=== PATIENT | female | born 1945 | race Hispanic/Latino ===

== ENCOUNTER → 2017-09-02 | Outpatient (CLI) | payer OTHER | END | disposition home or self-care (01) | LOC: OIH 13:52 | PROVIDERS: ATTEND Family Medicine | DX: S99.922A Unspecified injury of left foot, initial encounter (principal); W19.XXXA Unspecified fall, initial encounter; Y93.89 Activity, other specified; Y92.89 Other specified places as the place of occurrence of the external cause; Y99.8 Other external cause status | CPT/HCPCS: 73630 ==

== ENCOUNTER → 2018-04-23 | Outpatient (CLI) | payer OTHER | END | disposition home or self-care (01) | LOC: OIH 11:11 | PROVIDERS: ATTEND Family Medicine | DX: M41.86 Other forms of scoliosis, lumbar region (principal); M25.562 Pain in left knee; I10 Essential (primary) hypertension; E78.5 Hyperlipidemia, unspecified | CPT/HCPCS: 72100; 73562 ==

== ENCOUNTER → 2019-02-08 | Outpatient (CLI) | payer OTHER | END | disposition home or self-care (01) | LOC: OIH 14:46 | PROVIDERS: ATTEND Family Medicine | DX: S33.140A Subluxation of L4/L5 lumbar vertebra, initial encounter (principal); M47.816 Spondylosis without myelopathy or radiculopathy, lumbar region; X58.XXXA Exposure to other specified factors, initial encounter; Y93.89 Activity, other specified; Y92.89 Other specified places as the place of occurrence of the external cause; Y99.8 Other external cause status | CPT/HCPCS: 72100 ==

== ENCOUNTER → 2019-12-30 | Outpatient (CLI) | payer OTHER | END | disposition home or self-care (01) | LOC: OIH 08:32 | PROVIDERS: ATTEND Family Medicine | DX: M25.511 Pain in right shoulder (principal) | CPT/HCPCS: 73030 ==

== ENCOUNTER 2024-09-16 18:56 | Emergency (ER) | payer OTHER ==
[~2024-09-16] VITALS: Ht 154.9 cm; Wt 88.5 kg
--- NOTE | 2024-09-16 20:01 | ERN ---
General Chief Complaint: Other Problems Stated Complaint: FISHING HOOK STUCK ON LEFT ARM Time Seen by MD: 19:03 Time Seen by Midlevel: 19:03 Source: patient History of Present Illness Initial Comments The patient is a 78-year-old female presenting to the emergency department with a fish hook to her left forearm. Denies any pain. Patient states she was wa lking around her lawn when she accidentally lodged the fishhook on her left forearm. Denies any symptoms at this time. Tetanus vaccination is up-to-date. Allergies: Coded Allergies: No Known Allergies (Unverified Allergy, Unknown, 09/16/24) Past Medical History Past Medical History: Hypertension Past Surgical History: None ROS Dictation CONSTITUTIONAL: Negative except for HPI HEAD/FACE: Negative except for HPI EENT: Negative except for HPI RESPIRATORY: Negative except for HPI GASTROINTESTINAL/ABDOMINAL: Negative except for HPI GENITOURINARY: Negative except for HPI MUSCULOSKELETAL: Negative except for HPI INTEGUMENTARY: Negative except for HPI NEUROLOGICAL/PSYCH: Negative except for HPI HEMATOLOGIC/LYMPHATIC: Negative except for HPI All Systems Negative, Except as noted above. 13 point review of systems assessed and all negative except for above. Physical Exam Physical Exam Dictation PHYSICAL EXAM: GENERAL: alert,, awake oriented x 3 HEENT: EOMI, Sclera non icteric, moist mucosa NECK: Supple, no JVD, trachea midline LUNGS: Clear breath sounds bilaterally. No wheezes HEART: Regular rate and rhythm. Normal S1 and S2, without murmurs ABD: Abdomen soft, nontender. Bowel sounds present EXT: Small fish hook lodged in the left forearm NEURO: Alert and oriented to person, follows commands MDM MDM: The patient is a 78-year-old female presenting to the emergency department with a fish hook to her left forearm. Denies any pain. Patient states she was walking around her lawn when she accidentally lodged the fishhook on her left forearm. Denies any symptoms at this time. Tetanus vaccination is up-to-date. On physical examination the patient has a small fish hook to the left forearm. It appears to be superficial. A small amounts of 1% lidocaine without epinephrine was administered the fishhook was advanced. The tip was cut and the fishhook was retracted. The fishhook was removed with no complications. No need for antibiotics. No need for tetanus as she was up-to-date with her tetanus vaccination. Differential diagnosis: Wound evaluation, laceration, foreign body There are no social concerns with this patient. Prescription drug management Prescriptions will include: None Medical management and examination interpretation discussions were had by me with other qualified healthcare professionals as indicated for the patient's care. ED Course Vital Signs Date Time Temp Pulse Resp B/P (MAP) Pulse Ox O2 Delivery O2 Flow Rate FiO2 09/16/24 20:23 98.1 72 18 162/75 98 Room Air* 0 21 09/16/24 19:50 97.9 78 20 176/88 98 Room Air* 0 21 09/16/24 18:58 97.9 78 20 176/88 98 Room Air DX & DISP Disposition: Discharge Departure Impression: Primary Impression: Fish hook injury of left forearm Condition: Stable Additional Instructions: Your fishhook was successfully removed with no complications. No need for antibiotics at this time. You are up-to-date with your tetanus shot. If you develop any signs of infection please report to your primary care doctor or return to the ER for further evaluation. Referrals: LAUREEN COLE MD (PCP) I have reviewed the case, and I agree with, Diagnosis and Plan I performed the substantive portion of the visit. I have reviewed and michael souza made and approve the management plan that is documented in the note by myself or the SABRINA. I acknowledge for responsibility for the patient's management plan. PAIGE CESAR Sep 16, 2024 20:01 AL PADILLA DO Sep 29, 2024 02:22
[2024-09-16 20:23] VITALS: BP 162/75; PULSE 72; RESP 18; TEMP 98; O2SAT 98
== END 2024-09-16 20:24 | disposition home or self-care (01) ==
LOC: EDH 18:56
DX: S50.852A Superficial foreign body of left forearm, initial encounter (principal); I10 Essential (primary) hypertension; W45.8XXA Other foreign body or object entering through skin, initial encounter; Y93.01 Activity, walking, marching and hiking; Y92.89 Other specified places as the place of occurrence of the external cause; Y99.8 Other external cause status
CPT/HCPCS: 99284

== ENCOUNTER → 2025-03-15 | Outpatient (CLI) | payer OTHER ==
--- NOTE | 2025-03-22 09:03 | HMCIMG ---
CLINICAL INDICATION: Asymptomatic menopausal state COMPARISON: None available TECHNIQUE: Bone densitometry is performed of the lumbar spine and left hip. FINDINGS: Total BMD of lumbar spine is 0.936 g/cm2 with a T-score of -1.0 and Z-score is 1.5. Total BMD of left hip is 0.651 g/cm2 with a T-score of -2.3 and Z-score is -0.4. FRAX SCORE: The 10 year fracture risk for a major osteoporotic fracture and hip fracture not reported due to T-scores at or below -2.5 IMPRESSION: 1. Osteoporosis left hip 2. Normal lumbar spine 3. I would recommend follow-up in 13 months World Health Organization criteria for BMD interpretation classify patients as Normal (T-score at or above -1.0), Osteopenic (T-score between -1.0 and -2.5), or Osteoporotic (T-score at or below -2.5). FRAX SCORE: A. All treatment decisions require clinical judgment and consideration of individual patient factors, including patient preferences, comorbidities, previous drug use, risk factors not captured in the FRAX model (e.g., frailty, falls, vitamin D deficiency, increased bone turnover, interval significant decline in bone density) and possible [id number]-estimation of fracture risk by FRAX. B. In addition, the NOF Guide recommends that FDA-approved medical therapies be considered in postmenopausal women and men age greater than or equal to 50 years with a: i. Hip or vertebral (clinical or morphometric) fracture. ii. T-score of less than or equal to -2.5 at the spine or hip. iii. Ten-year fracture probability by FRAX of greater than or equal to 3% for hip fracture of greater than or equal to 20% for major osteoporotic fracture.
== END | disposition home or self-care (01) ==
LOC: RAH 12:47
PROVIDERS: ATTEND Internal Medicine
DX: M81.0 Age-related osteoporosis without current pathological fracture (principal); M85.89 Other specified disorders of bone density and structure, multiple sites; Z78.0 Asymptomatic menopausal state
CPT/HCPCS: 77080